=== PATIENT | female | born 1955 | race Caucasian/White ===

== ENCOUNTER → 2017-07-28 | Outpatient (CLI) | payer BC ==
--- NOTE | 2017-07-28 11:06 | RAD ---
DATE: 07/28/2017 EXAM: MAMMO SHAY SCREENING BILATERAL HISTORY: Routine screening COMPARISON: 07/14/2016 This study was interpreted with the benefit of Computerized Aided Detection (CAD). FINDINGS: Breast Density: SCATTERED The breast parenchyma shows scattered fibroglandular densities. Breast parenchyma level B. There are no dominant suspicious masses, suspicious microcalcifications or evidence of architectural distortion. Benign-appearing nodules or intramammary lymph nodes identified in the bilateral breasts similar to prior exam. IMPRESSION: Benign findings BI-RADS CATEGORY: 2 BENIGN FINDING RECOMMENDED FOLLOW-UP: 12M 12 MONTH FOLLOW-UP PQRS compliance statement: Patient information was entered into a reminder system with a target due date 07/28/2018 for the next mammogram. Mammography is a sensitive method for finding small breast cancers, but it does not detect them all and is not a substitute for careful clinical examination. A negative mammogram does not negate a clinically suspicious finding and should not result in delay in biopsying a clinically suspicious abnormality. "Our facility is accredited by the [employer] Mammography [employer]."
== END | disposition home or self-care (01) ==
LOC: MAMMO 08:31
PROVIDERS: ATTEND Specialist
DX: Z12.31 Encounter for screening mammogram for malignant neoplasm of breast (principal)
CPT/HCPCS: 77063; G0202; 77067

== ENCOUNTER → 2018-08-01 | Outpatient (CLI) | payer BC ==
--- NOTE | 2018-08-01 15:06 | RAD ---
DATE: August 01, 2018 EXAM: MAMMO SHAY SCREENING BILATERAL HISTORY: Screening study. COMPARISON: 2015 and 2017. This study was interpreted with the benefit of Computerized Aided Detection (CAD). 2-D digital mammographic views of both breasts were performed in the CC and MLO projections. 3-D digital tomosynthesis images of both breasts were performed in the CC and MLO projections and reviewed on a computer workstation. FINDINGS: Breast Density: SCATTERED The breast parenchyma shows scattered fibroglandular densities. Breast parenchyma level B.. There are no new dominant suspicious masses, suspicious microcalcifications or evidence of architectural distortion. Bilateral breast nodularity is stable. IMPRESSION: No mammographic indicators for malignancy. BI-RADS CATEGORY: 2 BENIGN FINDING RECOMMENDED FOLLOW-UP: 12M 12 MONTH FOLLOW-UP PQRS compliance statement: Patient information was entered into a reminder system with a target due date August 02, 2019 for the next mammogram. Mammography is a sensitive method for finding small breast cancers, but it does not detect them all and is not a substitute for careful clinical examination. A negative mammogram does not negate a clinically suspicious finding and should not result in delay in biopsying a clinically suspicious abnormality. "Our facility is accredited by the [employer] Mammography Program." The patient's breast density may affect the ability of mammography to detect breast cancer. There are 4 categories of breast density, A, B, C and D. Breast density A means that most of the breast tissue is replaced with adipose tissue and therefore is not dense. Breast density B means that the breast tissue is mildly dense and scattered. Breast density C means that the breast tissue is heterogeneously dense. Breast density D means that the breast tissue is very dense. Breast densities especially C and D may decrease the sensitivity of mammography to detect breast cancer. Therefore, the patient may benefit from 3-D breast mammography (3D breast tomography) as a part of their screening mammogram. Insurance may or may not pay for this additional imaging. The patient's breast density based on today's mammogram is category B.
== END | disposition home or self-care (01) ==
LOC: MAMMO 07:47
PROVIDERS: ATTEND Specialist
DX: Z12.31 Encounter for screening mammogram for malignant neoplasm of breast (principal)
CPT/HCPCS: 77063; 77067

== ENCOUNTER → 2019-08-02 | Outpatient (CLI) | payer BC ==
--- NOTE | 2019-08-04 11:10 | RAD ---
FOOT LEFT 2V History: Pain. Technique: 2 views left foot. Comparison: July 25, 2008 Findings: Postoperative changes first metatarsal. Normal alignment. No fracture. Small plantar calcaneal spur. Impression: 1. No acute osseous abnormality. 2. Postoperative changes first metatarsal shaft. Electronically signed by: Blaze Hernandez DO (08/04/2019 11:07 AM) [id number]
== END | disposition home or self-care (01) ==
LOC: DXRAD 15:46
PROVIDERS: ATTEND Specialist
DX: M77.32 Calcaneal spur, left foot (principal); Z98.890 Other specified postprocedural states
CPT/HCPCS: 73620

== ENCOUNTER → 2019-08-04 | Outpatient (CLI) | payer BC ==
--- NOTE | 2019-08-07 13:15 | RAD ---
DATE: August 04, 2019 EXAM: MAMMO SHAY SCREENING BILATERAL HISTORY: Screening study. COMPARISON: 2016 and 2018 This study was interpreted with the benefit of Computerized Aided Detection (CAD). FINDINGS: Breast Density: SCATTERED The breast parenchyma shows scattered fibroglandular densities. Breast parenchyma level B.. There are no dominant suspicious masses, suspicious microcalcifications or evidence of architectural distortion. Multiple bilateral breast nodules are again evident and have not changed significantly. IMPRESSION: No mammographic indicators for malignancy. BI-RADS CATEGORY: 2 BENIGN FINDING RECOMMENDED FOLLOW-UP: 12M 12 MONTH FOLLOW-UP PQRS compliance statement: Patient information was entered into a reminder system with a target due date August 05, 2020 for the next mammogram. Mammography is a sensitive method for finding small breast cancers, but it does not detect them all and is not a substitute for careful clinical examination. A negative mammogram does not negate a clinically suspicious finding and should not result in delay in biopsying a clinically suspicious abnormality. "Our facility is accredited by the [employer] Mammography Program." The patient's breast density may affect the ability of mammography to detect breast cancer. There are 4 categories of breast density, A, B, C and D. Breast density A means that most of the breast tissue is replaced with adipose tissue and therefore is not dense. Breast density B means that the breast tissue is mildly dense and scattered. Breast density C means that the breast tissue is heterogeneously dense. Breast density D means that the breast tissue is very dense. Breast densities especially C and D may decrease the sensitivity of mammography to detect breast cancer. Therefore, the patient may benefit from 3-D breast mammography (3D breast tomography) as a part of their screening mammogram. Insurance may or may not pay for this additional imaging. The patient's breast density based on today's mammogram is category B.
== END | disposition home or self-care (01) ==
LOC: MAMMO 09:45
PROVIDERS: ATTEND Specialist
DX: Z12.31 Encounter for screening mammogram for malignant neoplasm of breast (principal); N62 Hypertrophy of breast
CPT/HCPCS: 77063; 77067

== ENCOUNTER 2020-07-20 04:42 | Inpatient (IN) | payer BC ==
[~2020-07-20] VITALS: Ht 165.1 cm; Wt 85.4 kg
[2020-07-20] MEDS ORDERED: simvastatin (04:57)
[2020-07-20] MEDS ORDERED: ibuprofen (04:57)
[2020-07-20] MEDS ORDERED: tramadol (04:57)
[2020-07-20] MEDS ORDERED: IV NORMAL SALINE 500ML 500 ML IV ONE (05:00)
[2020-07-20] MEDS ORDERED: ONDANSETRON PF 4 MG/2 ML VIAL. IVP ONE (05:00)
--- NOTE | 2020-07-20 05:04 | PHYS DOC ---
General Adult HPI: HPI: Patient is a 64-year-old female coming in for severe diffuse abdominal pain. The pain started 3 days ago as a sharp pain in her right abdomen. Travel to [place] to spend Thanksgiving with family, patient states she had stopped and had a drive-through burger prior to the pain. who is with her did not have any before the restaurant and has no symptoms. Patient states that the pain is gotten more more diffuse. Patient states she also has not had a bowel movement since that same day 3 days ago, has had dry heaving but no vomiting. Pain is worse with food and movement. No changes with urination, no fevers. No history of any abdominal surgeries. Patient denies history of constipation says she normally has regular bowel movements. Review of Systems: Review of Systems: Constitutional: Denies fever or chills Eyes: Denies change in visual acuity HENT: Denies nasal congestion or sore throat Respiratory: Denies cough or shortness of breath Cardiovascular: Denies chest pain or edema GI: Generalized abdominal pain, nausea without vomiting. Constipation, denies abdominal distention or bloating : Denies dysuria Musculoskeletal: Denies back pain or joint pain Integument: Denies rash Neurologic: Denies headache, focal weakness or sensory changes Endocrine: Denies polyuria or polydipsia Lymphatic: Denies swollen glands Psychiatric: Denies depression or anxiety Physical Exam: PE: Constitutional: Well developed, well nourished, acute distress, non-toxic appearance. [] HENT: Normocephalic, atraumatic, bilateral external ears normal, oropharynx moist, no oral exudates, nose normal. [] Eyes: PERRLA, EOMI, conjunctiva normal, no discharge. [] Neck: Normal range of motion, no tenderness, supple, no stridor. [] Cardiovascular:Heart rate regular rhythm, no murmur [] Lungs & Thorax: Bilateral breath sounds clear to auscultation [] Abdomen: Nondistended, generalized abdominal pain with guarding and positive rebound. No identifiable point tenderness Skin: Warm, dry, no erythema, no rash. [] No jaundice Back: No tenderness, no CVA tenderness. [] Extremities: No tenderness, no cyanosis, no clubbing, ROM intact, no edema. [] Neurologic: Alert and oriented X 3, normal motor function, normal sensory function, no focal deficits noted. [] Psychologic: Affect normal, judgement normal, mood normal. [] EKG: EKG: [] Radiology/Procedures: Radiology/Procedures: [] Heart Score: Risk Factors: Risk Factors: DM, Current or recent (<one month) smoker, HTN, HLP, family history of CAD, obesity. Risk Scores: Score 0 - 3: 2.5% MACE over next 6 weeks - Discharge Home Score 4 - 6: 20.3% MACE over next 6 weeks - Admit for Clinical Observation Score 7 - 10: 72.7% MACE over next 6 weeks - Early Invasive Strategies Course & Med Decision Making: Course & Med Decision Making CT done and shows free fluid in the abdomen. Given Zosyn due to stranding on CT and white blood cell count of 25. Pending CT read and transfer for surgical consult. Care transition to Dr. Davila [] Neal Disclaimer: Neal Disclaimer: This electronic medical record was generated, in whole or in part, using a voice recognition dictation system. Departure Departure: Referrals: LUZ MARINA VOGT MD (PCP) MONICA NASCIMENTO MD Jul 20, 2020 05:03
[2020-07-20] MEDS ORDERED: IOHEXOL 300 MG/ML 75 ML VIAL. IV ONE (05:15)
[2020-07-20] MEDS ORDERED: CONTRAST GIVEN. MC PRN (05:15)
[2020-07-20] MEDS ORDERED: HYDROmorphone PF 1 MG/ML DISP.SYRIN ONE (05:22)
[2020-07-20] MEDS ORDERED: HYDROmorphone PF 1 MG/ML DISP.SYRIN IVP ONE (05:30)
[2020-07-20 05:31] LABS: CREATININE 1.1 mg/dL (0.6-1.0); POTASSIUM 3.5 mmol/L (3.5-5.1)
[2020-07-20 05:38] LABS: BASO # 0.1 x10^3/uL (0.0-0.2); BASO % 1 % (0-3); EOS # 0.4 x10^3/uL (0.0-0.7); EOS % 2 % (0-3); HEMATOCRIT 47.8 % (36.0-47.0); LYMPH # 3.1 x10^3/uL (1.0-4.8); LYMPH % 12 % (24-48); MEAN CORPUSCULAR HEMOGLOBIN 29 pg (25-35); MEAN CORPUSCULAR HGB CONC 34 g/dL (31-37); MEAN CORPUSCULAR VOLUME 88 fL (79-100); MONO # 1.7 x10^3/uL (0.0-1.1); MONO % 7 % (0-9); NEUT # 20.1 x10^3uL (1.8-7.7); NEUT % 79 % (31-73); PLATELET COUNT 226 x10^3/uL (140-400); RED BLOOD COUNT 5.46 x10^6/uL (3.50-5.40); WHITE BLOOD COUNT 25.4 x10^3/uL (4.0-11.0)
[2020-07-20 05:46] LABS: ALBUMIN 2.8 g/dL (3.4-5.0); ALBUMIN/GLOBULIN RATIO 0.6 (1.0-1.7); TOTAL BILIRUBIN 0.8 mg/dL (0.2-1.0); TOTAL PROTEIN 7.4 g/dL (6.4-8.2)
[2020-07-20] MEDS ORDERED: IV RINGERS SOLUTION,LACTATED 1,000 ML IV ONE (06:00)
[2020-07-20] MEDS ORDERED: PIPERACILLIN/TAZOBACTAM 3.375 GM in IV NORMAL SALINE 50ML 50 ML IV ONE (06:00)
[2020-07-20 06:06] LABS: % ATYL 7 % (0-0); % BANDS 2 % (0-9); % EOS 7 % (0-5); % LYMPHS 4 % (24-48); % MONOS 9 % (0-10); % SEGS 71 % (35-66)
[2020-07-20 06:07] LABS: PLT ESTIMATE ADEQUATE (ADEQUATE)
[2020-07-20] MEDS ORDERED: IV NORMAL SALINE 50ML 50 ML ONE (06:08)
[2020-07-20] MEDS ORDERED: PIPERACILLIN/TAZOBACTAM 3.375 GM VIAL IV ONE (06:08)
--- NOTE | 2020-07-20 06:23 | RAD ---
EXAMINATION: CT ABD PELV W/ IV CONTRST ONLY (CT ABDOMEN/PELVIS WITH IV CONTRAST) CLINICAL HISTORY: Generalized abdominal pain TECHNIQUE: CT of the abdomen and pelvis was performed using standard technique, scanning from just above the dome of the diaphragm to the symphysis pubis following administration of intravenous contrast. CT Dose Reduction Employed: One or more of the following individualized dose reduction techniques were utilized for this examination: 1. Automated exposure control 2. Adjustment of the mA and/or kV according to patient size 3. Use of iterative reconstruction technique. COMPARISON: None FINDINGS: Partially visualized small right pleural effusion with overlying atelectasis. Trace left pleural effusion with overlying atelectasis. Partially visualized small focal calcification along the pericardium overlying the right atrium. Moderate peripancreatic edema at the level of the pancreatic head, uncinate process, and proximal body. No organized peripancreatic fluid collection or focal pancreatic hypoenhancement. 8mm ovoid lesion in the pancreatic body with macroscopic fat. Liver, gallbladder, spleen, endotracheal glands unremarkable. Subcentimeter hypoenhancing lesions in the bilateral kidneys, too small adequately characterize but likely benign. Mildly filled urinary bladder. Uterus and ovaries unremarkable. Mild simple fluid within the pelvis, likely reactive. No bowel dilation or definite wall thickening. Minimal sigmoid diverticulosis without evidence of diverticulitis. Normal appendix. Minimal arterial atherosclerotic calcification without aneurysm. No significant lymphadenopathy. L4-5 and L5-S1 facet arthropathy. IMPRESSION: Findings compatible with acute uncomplicated pancreatitis, correlate with serum lipase level. 8 mm lipomatous lesion in the pancreatic body, suggestive of a lipoma. Partially visualized small right pleural effusion and trace left pleural effusion. Electronically signed by: Oh Roman DO (07/20/2020 6:20 AM) [facility]
[2020-07-20 08:04] VITALS: BP 111/75
[2020-07-20] MEDS: HYDROmorphone PF 1 MG/ML DISP.SYRIN IV PRN ×5 (09:10→23:51)
--- NOTE | 2020-07-20 09:38 | HP ---
ADMIT DATE: 07/20/2020 ATTENDING PHYSICIAN: Dr. Solomon. CHIEF COMPLAINT: Abdominal pain and nausea. HISTORY OF PRESENT ILLNESS: The patient is a 64-year-old female who is otherwise active and fairly healthy. She has a 3-day history of increasing abdominal pain and nausea following a recent car trip to [place] to see her daughter. She did not feel well. She came back. The nausea and pain persisted. In the ED, she had a CT of the abdomen, which showed moderate inflammation of the pancreas. This is read out as an uncomplicated pancreatitis involving peripancreatic edema at the level of the pancreatic head to uncinate process and proximal body. No collection of fluid. No pseudocyst. A small left pleural effusion is identified. There is no obstruction. There is some lumbar facet arthropathy. She had an 8 mm lipomatous lesion in the pancreatic body, suggesting a lipoma. No other pathology identified. She was admitted then with acute pancreatitis, most likely idiopathic in nature. She denies any alcohol use. She is very straightforward. There is no evidence of gallstones at this time. Certainly, she could have had a gallstone which passed and has not seen at this time. She is admitted then for further treatment and evaluation and n.p.o. status. PAST MEDICAL HISTORY: Significant for mild lumbar back pain and hyperlipidemia. CURRENT MEDICATIONS: Includes Crestor and occasional Lunesta at night to help her sleep and Ultram for back pain. There is no previous abdominal surgery. No COVID exposure. No fevers. FAMILY HISTORY: Her mom unfortunately at age 40 of complications of lung cancer and had been a heavy smoker. Father at age 54 of the ravages of alcohol use. She is , retired. 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 She has 3 children, ages 40, 38 and 36, they are all grown. She has 5 grandchildren. ALLERGIES: She has no recorded drug allergies. She herself is a nonsmoker, nondrinker. REVIEW OF SYSTEMS: Significant for the GI symptoms. No fevers, COVID exposure, nausea without vomiting, no hematemesis. All other systems were reviewed and determined to be negative. PHYSICAL EXAMINATION: GENERAL: When I saw her, this is a pleasant, middle-aged female. INITIAL VITAL SIGNS: In the ED showed a blood pressure of 138/89, pulse is 94 and regular. She was afebrile, oxygen saturation 97% on 2 liters nasal cannula. HEENT: Head is without trauma. Pupils are reactive. Sclerae nonicteric. Oropharynx is clear. NECK: Supple. No guarding or rebound tenderness. LUNGS: Otherwise clear. CARDIOVASCULAR: Showed regular heart tones. No gallops. Peripheral pulses are palpable and full. ABDOMEN: Diffuse tenderness on palpation. There is some guarding, but no rebound tenderness. Bowel sounds are hypoactive. EXTREMITIES: Showed no cyanosis or edema. NEUROLOGIC: Focally intact. Speech is fluent. There are no focal deficits. SKIN: Otherwise warm and dry. PERTINENT LABORATORY AND X-RAY STUDIES: CT of the abdomen as noted. The white count was elevated at 25,400, hemoglobin 16.0 g/dL in a hemoconcentrated state. Sodium 134 mEq, potassium 3.5, creatinine is 1.1 mg/dL, nonfasting blood sugar 115. Transaminases and bilirubin were normal. Lactate level came down to 0.9. ASSESSMENT: 1. A 64-year-old female with acute pancreatitis, etiology is idiopathic. She does not drink any alcohol. There is no evidence of stones. A triglyceride level is pending. 2. Associated nausea with vomiting. 3. Localized pain. 4. Hyperlipidemia. PLAN: 1. Admit to the inpatient unit. 2. Strict n.p.o. except for ice chips. 3. IV hydration. 4. Pain control. 5. Nausea control. 6. Follow up CBCs and chemistries. NETTIE SOLOMON MD DR: GLENDA/analy JOB#: [id number] / [id number] [facility] LUZ MARINA VOGT MD
[2020-07-20] MEDS ORDERED: TRAM50TA PO (10:23)
[2020-07-20] MEDS ORDERED: ESZO3TAB28 PO (10:23)
[2020-07-20] MEDS ORDERED: SIMV20TA18 PO (10:23)
[2020-07-20] MEDS ORDERED: ASPI-630 PO (10:26)
[2020-07-20 10:41] LABS: BILIRUBIN,URINE NEG (NEG); CLARITY,URINE HAZY; COLOR,URINE AMBER; GLUCOSE,URINE NEG (NEG)
[2020-07-20 10:42] LABS: BACTERIA,URINE FEW /HPF (0-FEW); GRANULAR CASTS,URINE OCC /HPF; HYALINE CASTS, URINE OCC /HPF; NITRITE,URINE NEG (NEG); SQUAMOUS EPITHELIAL CELL,UR MOD /LPF; UROBILINOGEN,URINE 0.2 mg/dL (0.2 mg/dL)
[2020-07-20 12:26] VITALS: BP 91/60
[2020-07-20 15:15] VITALS: BP 106/73
[2020-07-20 19:28] VITALS: BP 100/67
[2020-07-20] MEDS: IV NORMAL SALINE 1,000ML 1,000 ML IV SCH (20:24)
[2020-07-21] MEDS: HYDROmorphone PF 1 MG/ML DISP.SYRIN IV PRN ×7 (04:00→22:45)
[2020-07-21 05:15] VITALS: BP 101/52
[2020-07-21 06:40] LABS: BASO # 0.1 x10^3/uL (0.0-0.2); BASO % 1 % (0-3); EOS # 0.3 x10^3/uL (0.0-0.7); EOS % 2 % (0-3); HEMATOCRIT 38.4 % (36.0-47.0); HEMOGLOBIN 12.6 g/dL (12.0-15.5); LYMPH # 1.4 x10^3/uL (1.0-4.8); LYMPH % 8 % (24-48); MEAN CORPUSCULAR HEMOGLOBIN 29 pg (25-35); MEAN CORPUSCULAR HGB CONC 33 g/dL (31-37); MEAN CORPUSCULAR VOLUME 88 fL (79-100); MONO # 1.3 x10^3/uL (0.0-1.1); MONO % 8 % (0-9); NEUT # 13.6 x10^3uL (1.8-7.7); NEUT % 82 % (31-73); PLATELET COUNT 169 x10^3/uL (140-400); RED BLOOD COUNT 4.37 x10^6/uL (3.50-5.40); RED CELL DISTRIBUTION WIDTH 13.8 % (11.5-14.5); WHITE BLOOD COUNT 16.7 x10^3/uL (4.0-11.0)
[2020-07-21] MEDS: IV NORMAL SALINE 1,000ML 1,000 ML IV SCH ×2 (07:25→17:30)
[2020-07-21 10:10] VITALS: BP 117/59
[2020-07-21] MEDS: CYCLOBENZAPRINE 10 MG TABLET. PO SCH ×2 (10:27→21:19)
[2020-07-21] MEDS ORDERED: PANTOPRAZOLE IV 40 MG VIAL. IVP ONE (14:00)
[2020-07-21 14:52] VITALS: BP 130/83
--- NOTE | 2020-07-21 17:19 | EKG ---
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
--- NOTE | 2020-07-21 18:11 | PN ---
DATE: 07/21/2020 ATTENDING PHYSICIAN: Dr. Solomon. SUBJECTIVE: Not feeling well. Nausea persists. Abdominal pain is lessened; however, she has a significant headache. It is more musculoskeletal in nature. OBJECTIVE FINDINGS: VITAL SIGNS: Blood pressure today is 101/52, pulse 97 and regular, temperature 98.6 degrees Fahrenheit, oxygen saturation 93% on room air. HEENT: Head is without trauma. Pupils are reactive. Sclerae nonicteric. Oropharynx is clear. NECK: Supple, no bruits. There are numerous trigger points in the posterior cervical area; muscles are spasming. LUNGS: Clear. CARDIOVASCULAR: Showed regular heart tones. No gallops. ABDOMEN: Soft. There is no guarding or rebound tenderness. Bowel sounds are hypoactive. EXTREMITIES: Showed no cyanosis or edema. NEUROLOGIC: Focally intact. Speech is fluent. Affect is somewhat flat. LABORATORY DATA: Repeat CBC showed hemoglobin 12.6 g/dL, yesterday it was higher due to a hemoconcentrated state; white count has come down to 16,700. ASSESSMENT: 1. A 64-year-old female with idiopathic pancreatitis. Once again, the etiology is unclear. She absolutely denies alcohol use. There is no evidence of stones. 2. Associated nausea with vomiting. 3. Musculoskeletal tension headaches. 4. Hyperlipidemia. PLAN: 1. We will continue to keep her n.p.o. except for some ice chips. 2. IV hydration. 3. Pain and nausea control. 4. Add Flexeril for muscle spasm. 5. Follow up CBC and chemistry. NETTIE SOLOMON MD DR: GLENDA/analy JOB#: [id number] / [id number]
[2020-07-21 19:10] VITALS: BP 142/80
[2020-07-21 23:03] VITALS: BP 133/83
[2020-07-21] MEDS: LABETALOL 20 MG/4 ML DISP.SYRIN. IVP PRN ×2 (23:14→23:58)
[2020-07-21 23:38] VITALS: BP 114/72
[2020-07-22 00:23] VITALS: BP 106/69
[2020-07-22] MEDS: HYDROmorphone PF 1 MG/ML DISP.SYRIN IV PRN ×6 (02:30→20:43)
[2020-07-22 05:46] VITALS: BP 102/58
[2020-07-22 06:14] LABS: CALCIUM 8.3 mg/dL (8.5-10.1); CREATININE 0.7 mg/dL (0.6-1.0); GFR 84.2; POTASSIUM 3.4 mmol/L (3.5-5.1)
[2020-07-22 06:18] LABS: BASO # 0.1 x10^3/uL (0.0-0.2); BASO % 0 % (0-3); EOS # 0.2 x10^3/uL (0.0-0.7); EOS % 2 % (0-3); HEMATOCRIT 35.9 % (36.0-47.0); HEMOGLOBIN 11.7 g/dL (12.0-15.5); LYMPH # 1.5 x10^3/uL (1.0-4.8); LYMPH % 10 % (24-48); MEAN CORPUSCULAR HEMOGLOBIN 29 pg (25-35); MEAN CORPUSCULAR HGB CONC 33 g/dL (31-37); MEAN CORPUSCULAR VOLUME 88 fL (79-100); MONO # 1.3 x10^3/uL (0.0-1.1); MONO % 8 % (0-9); NEUT # 12.6 x10^3uL (1.8-7.7); NEUT % 80 % (31-73); PLATELET COUNT 187 x10^3/uL (140-400); RED BLOOD COUNT 4.08 x10^6/uL (3.50-5.40); RED CELL DISTRIBUTION WIDTH 13.8 % (11.5-14.5); WHITE BLOOD COUNT 15.7 x10^3/uL (4.0-11.0)
--- NOTE | 2020-07-22 08:20 | PDOC2 ---
CARDIAC CONSULT DATE OF CONSULT DOS: DATE: 07/22/20 TIME: 08:08 REASON FOR CONSULT Reason for Consult SVT REFERRING PHYSICIAN Referring Physician Dr. Ayers SOURCE Source: Chart review, Patient HPI History of Present Illness This is a 64 yo female who presented with abdominal pain. Pain began 3 days prior to arrival. Traveled to [place] for Thanksgiving with family. Began having pain shortly after she arrived. Stayed for a day and retuned home due to pain. Pain progressively worsened. Has had nausea, but no vomiting. Decided to come to the ED for further evaluation and treatment. CT abdomen/pelvis with evidence of pancreatitis, although lipase is WNL. Went into AFIB with RVR overnight, which prompted this consult. She denies any palpitations, dizziness, diaphoresis, SOA. Does c/o WOODS. PAST MEDICAL HISTORY Cardiovascular: hyperipidemia Pulmonary: No pertinent hx GI: No pertinent hx Musculoskeletal: Osteoarthritis Endocrine: No pertinent hx PAST SURGICAL HISTORY Past Surgical History: No pertinent history FAMILY HISTORY Family History: Other (no pertinent histroy ) SOCIAL HISTORY Smoke: No ALCOHOL: none Drugs: None Lives: with Family CURRENT MEDICATIONS Current Medications Current Medications Ondansetron HCl (Zofran) 4 mg 1X ONCE IVP Last administered on 07/20/20at 05:18; Start 07/20/20 at 05:00; Stop 07/20/20 at 05:11; Status DC Sodium Chloride 500 ml @ 0 mls/hr 1X ONCE IV Last administered on 07/20/20at 05:17; Start 07/20/20 at 05:00; Stop 07/20/20 at 05:11; Status DC Fentanyl Citrate (Fentanyl 2ml Vial) 75 mcg 1X ONCE IVP Last administered on 07/20/20at 05:18; Start 07/20/20 at 05:00; Stop 07/20/20 at 05:11; Status DC Iohexol (Omnipaque 300 Mg/ml) 75 ml 1X ONCE IV Last administered on 07/20/20at 05:32; Start 07/20/20 at 05:15; Stop 07/20/20 at 05:16; Status DC Info (Do NOT chart on this entry -- for MONITORING) 1 each PRN DAILY PRN MC SEE COMMENTS; Start 07/20/20 at 05:15; Stop 07/22/20 at 05:14; Status DC Hydromorphone HCl (Dilaudid) 1 mg 1X ONCE IVP Last administered on 07/20/20at 05:28; Start 07/20/20 at 05:30; Stop 07/20/20 at 05:31; Status DC Hydromorphone HCl (Dilaudid) 1 mg STK-MED ONCE .ROUTE ; Start 07/20/20 at 05:22; Stop 07/20/20 at 05:22; Status DC Piperacillin Sod/ Tazobactam Sod 3.375 gm/Sodium Chloride 50 ml @ 100 mls/hr 1X ONCE IV Last administered on 07/20/20at 06:12; Start 07/20/20 at 06:00; Stop 07/20/20 at 06:29; Status DC Lactated Ringer's 1,000 ml @ 75 mls/hr 1X ONCE IV Last administered on 07/20/20at 06:12; Start 07/20/20 at 06:00; Stop 07/20/20 at 19:19; Status DC Sodium Chloride 50 ml @ As Directed STK-MED ONCE .ROUTE ; Start 07/20/20 at 06:08; Stop 07/20/20 at 06:08; Status DC Piperacillin Sod/ Tazobactam Sod (Zosyn) 3.375 gm STK-MED ONCE IV ; Start 07/20/20 at 06:08; Stop 07/20/20 at 06:08; Status DC Sodium Chloride 1,000 ml @ 100 mls/hr Q10H IV Last administered on 07/21/20at 17:30; Start 07/20/20 at 07:15; Stop 07/21/20 at 07:14; Status DC Hydromorphone HCl (Dilaudid) 1 mg PRN Q3HRS PRN IV PAIN Last administered on 07/21/20at 07:25; Start 07/20/20 at 07:15; Stop 07/21/20 at 09:24; Status DC Hydromorphone HCl (Dilaudid) 1 mg PRN Q2HR PRN IV PAIN Last administered on 07/22/20at 07:35; Start 07/21/20 at 09:15 Cyclobenzaprine HCl (Flexeril) 10 mg BID PO Last administered on 07/21/20at 21:19; Start 07/21/20 at 10:30 Pantoprazole Sodium (Protonix Vial) 40 mg DAILYAC IVP ; Start 07/22/20 at 07:30 Pantoprazole Sodium (Protonix Vial) 40 mg 1X ONCE IVP Last administered on 07/21/20at 14:22; Start 07/21/20 at 14:00; Stop 07/21/20 at 14:02; Status DC Labetalol HCl (Normodyne) 10 mg PRN Q1HR PRN IVP HYPERTENSION Last administered on 07/21/20at 23:58; Start 07/21/20 at 23:15 Active Scripts Active Reported Aspirin 81 Mg Tab.chew 81 Mg PO DAILY Lunesta (Eszopiclone) 3 Mg Tablet 1 Tab PO PRN QHS PRN MDD 1 Tablet(s) 30 Days Simvastatin 20 Mg Tablet 1 Tab PO QHS Tramadol Hcl (Tramadol HCl) 50 Mg Tablet 50 Mg PO PRN Q6HRS PRN ALLERGIES Allergies: Coded Allergies: No Known Drug Allergies (Unverified , 07/20/20) ROS Review of Systems 14 point ROS conducted with pertinent positives noted above in hPI PHYSICAL EXAM General: Alert, Oriented X3, Cooperative, No acute distress HEENT: Atraumatic, Mucous membr. moist/pink Lungs: Clear to auscultation Heart: Regular rate, Normal S1 Abdomen: Other (mild tenderness ) Extremities: No edema, Normal pulses Skin: No breakdown Neuro: Normal speech, Sensation intact Psych/Mental Status: Mental status NL, Mood NL MUSCULOSKELETAL: Osteoarthritic changes both hands VITALS Vital Signs Vital Signs Date Time Temp Pulse Resp B/P (MAP) Pulse Ox O2 Delivery O2 Flow Rate FiO2 07/22/20 07:35 18 Room Air 07/22/20 05:46 98.3 85 102/58 (73) 93 2.0 LABS LABS Laboratory Tests Test 07/20/20 08:35 07/20/20 09:30 07/21/20 06:15 07/22/20 05:52 Lactic Acid Level 0.9 mmol/L (0.4-2.0) Urine Collection Type Unknown Urine Color Marisa Urine Clarity Hazy Urine pH 5.5 Urine Specific [place] 1.010 Urine Protein Trace (NEG-TRACE) Urine Glucose (UA) Neg mg/dL (NEG) Urine Ketones (Stick) 15 mg/dL (NEG) Urine Blood Small (NEG) Urine Nitrite Neg (NEG) Urine Bilirubin Neg (NEG) Urine Urobilinogen Dipstick 0.2 mg/dL (0.2 mg/dL) Urine Leukocyte Esterase Trace (NEG) Urine RBC 3-5 /HPF (0-2) Urine WBC 11-20 /HPF (0-4) Urine Squamous Epithelial Cells Mod /LPF Urine Bacteria Few /HPF (0-FEW) Urine Hyaline Casts Occ /HPF Urine Granular Casts Occ /HPF Urine Mucus Slight /LPF White Blood Count 16.7 x10^3/uL (4.0-11.0) 15.7 x10^3/uL (4.0-11.0) Red Blood Count 4.37 x10^6/uL (3.50-5.40) 4.08 x10^6/uL (3.50-5.40) Hemoglobin 12.6 g/dL (12.0-15.5) 11.7 g/dL (12.0-15.5) Hematocrit 38.4 % (36.0-47.0) 35.9 % (36.0-47.0) Mean Corpuscular Volume 88 fL (79-100) 88 fL (79-100) Mean Corpuscular Hemoglobin 29 pg (25-35) 29 pg (25-35) Mean Corpuscular Hemoglobin Concent 33 g/dL (31-37) 33 g/dL (31-37) Red Cell Distribution Width 13.8 % (11.5-14.5) 13.8 % (11.5-14.5) Platelet Count 169 x10^3/uL (140-400) 187 x10^3/uL (140-400) Neutrophils (%) (Auto) 82 % (31-73) 80 % (31-73) Lymphocytes (%) (Auto) 8 % (24-48) 10 % (24-48) Monocytes (%) (Auto) 8 % (0-9) 8 % (0-9) Eosinophils (%) (Auto) 2 % (0-3) 2 % (0-3) Basophils (%) (Auto) 1 % (0-3) 0 % (0-3) Neutrophils # (Auto) 13.6 x10^3uL (1.8-7.7) 12.6 x10^3uL (1.8-7.7) Lymphocytes # (Auto) 1.4 x10^3/uL (1.0-4.8) 1.5 x10^3/uL (1.0-4.8) Monocytes # (Auto) 1.3 x10^3/uL (0.0-1.1) 1.3 x10^3/uL (0.0-1.1) Eosinophils # (Auto) 0.3 x10^3/uL (0.0-0.7) 0.2 x10^3/uL (0.0-0.7) Basophils # (Auto) 0.1 x10^3/uL (0.0-0.2) 0.1 x10^3/uL (0.0-0.2) Sodium Level 140 mmol/L (136-145) Potassium Level 3.4 mmol/L (3.5-5.1) Chloride Level 105 mmol/L (98-107) Carbon Dioxide Level 28 mmol/L (21-32) Anion Gap 7 (6-14) Blood Urea Nitrogen 9 mg/dL (7-20) Creatinine 0.7 mg/dL (0.6-1.0) Estimated GFR (Cockcroft-Gault) 84.2 Glucose Level 85 mg/dL (70-99) Calcium Level 8.3 mg/dL (8.5-10.1) ASSESSMENT/PLAN Assessment/Plan 1. Abdominal pain; CT abd/pelvis with evidence of pancreatitis. Lipase WNL 2. Leukocytosis, lactic acidosis 3. Hypokalemia 3. Arrhythmia; review of tele shows AFIB with RVR. Treated with Labetalol overnight. Converted back to SR and is maintaining this am Recommendations Replace K Mg, TSH level Add ASA when able to take oral Start metoprolol for rate control; will use metoprolol 5mg IVP q6. Convert to oral when able to take PO Echo ordered Will arrange outpatient event monitor to guide therapy Follow up with Dr. Richardson Supportive care MAGUI RUDOLPH APRN Jul 22, 2020 08:20
[2020-07-22] MEDS: PANTOPRAZOLE IV 40 MG VIAL. IVP SCH (08:21)
[2020-07-22] MEDS: CYCLOBENZAPRINE 10 MG TABLET. PO SCH ×2 (08:21→20:43)
--- NOTE | 2020-07-22 09:20 | PN ---
DATE: 07/22/2020 ATTENDING PHYSICIAN: Dr. Solomon. SUBJECTIVE: Nausea is better. Headache is improved. She had some asymptomatic tachyarrhythmia last night, which appears to be atrial fibrillation. This has been controlled with addition of beta blockade. OBJECTIVE FINDINGS: VITAL SIGNS: Blood pressure this morning is 102/58 mmHg, pulse 85 and regular, oxygen saturation 93%, temperature is 98.3 degrees Fahrenheit. HEENT: Head is without trauma. Pupils are reactive. Sclerae nonicteric. Oropharynx is clear. NECK: Supple, no bruits identified. LUNGS: Otherwise clear. CARDIOVASCULAR: Showed regular heart tones. ABDOMEN: Soft. Minimal guarding, no rebound tenderness. Hypoactive bowel sounds. EXTREMITIES: Show no cyanosis or edema. NEUROLOGIC: Focally intact. Speech is fluent. SKIN: Warm and dry. PERTINENT LABORATORY STUDIES: White count is down from 25,000-15,700 today. Chemistry panel: Potassium 3.4 mEq, sodium 140, creatinine 0.7 mg/dL, triglycerides were 75. ASSESSMENT: 1. This 64-year-old female has idiopathic pancreatitis, acute. 2. Associated nausea and vomiting. 3. Paroxysmal atrial fibrillation, controlled now. 4. Hyperlipidemia. 5. Headaches, improved. PLAN: 1. Rx per Cardiology. 2. I ordered an echocardiogram. 3. Continue n.p.o. 4. Pain and nausea control. 5. Follow up chemistries. NETTIE SOLOMON MD DR: GLENDA/analy JOB#: [id number] / [id number]
[2020-07-22 10:00] VITALS: BP 131/80
[2020-07-22] MEDS: POTASSIUM CHLORIDE 10MEQ 100 ML IV SCH ×2 (10:02→11:27)
[2020-07-22] MEDS: METOPROLOL TARTRATE 5 MG/5 ML VIAL. IV SCH ×2 (12:54→17:52)
[2020-07-22 15:54] VITALS: BP 133/77
[2020-07-22 20:00] VITALS: BP 123/74
[2020-07-22 23:30] VITALS: BP 125/53
[2020-07-23] VITALS (18 sets, daily range): BP systolic 115–158; BP diastolic 48–95
[2020-07-23] MEDS: METOPROLOL TARTRATE 5 MG/5 ML VIAL. IV SCH ×5 (00:16→23:26)
[2020-07-23 06:39] LABS: CALCIUM 8.6 mg/dL (8.5-10.1); CREATININE 0.6 mg/dL (0.6-1.0); GFR 100.6; POTASSIUM 3.3 mmol/L (3.5-5.1)
[2020-07-23] MEDS ORDERED: DIGOXIN IV 500 MCG/2 ML AMPUL. IV ONE ×3 (07:15→16:00)
[2020-07-23] MEDS: METOPROLOL TARTRATE 5 MG/5 ML VIAL. IV PRN ×2 (07:45→15:45)
--- NOTE | 2020-07-23 07:54 | PDOC ---
CARDIO Progress Notes Date & Time Date of Service DATE: 07/23/20 TIME: 07:52 Time of Evaluation 07:52 Subjective Notes mild abdominal tenderness. Mild WOODS and palpitations. No dizziness, chest pain. Vitals Vitals Vital Signs Date Time Temp Pulse Resp B/P (MAP) Pulse Ox O2 Delivery O2 Flow Rate FiO2 07/23/20 07:30 96 137/68 07/23/20 07:26 98.3 20 96 Room Air 07/22/20 20:00 2.0 Weight Weight [ ] Input and Output I.O. Intake and Output 07/23/20 07:00 Intake Total 220 ml Balance 220 ml Intake Oral 220 ml # Voids 6 Laboratory Labs Laboratory Tests Test 07/22/20 05:52 07/23/20 06:08 White Blood Count 15.7 x10^3/uL (4.0-11.0) Red Blood Count 4.08 x10^6/uL (3.50-5.40) Hemoglobin 11.7 g/dL (12.0-15.5) Hematocrit 35.9 % (36.0-47.0) Mean Corpuscular Volume 88 fL (79-100) Mean Corpuscular Hemoglobin 29 pg (25-35) Mean Corpuscular Hemoglobin Concent 33 g/dL (31-37) Red Cell Distribution Width 13.8 % (11.5-14.5) Platelet Count 187 x10^3/uL (140-400) Neutrophils (%) (Auto) 80 % (31-73) Lymphocytes (%) (Auto) 10 % (24-48) Monocytes (%) (Auto) 8 % (0-9) Eosinophils (%) (Auto) 2 % (0-3) Basophils (%) (Auto) 0 % (0-3) Neutrophils # (Auto) 12.6 x10^3uL (1.8-7.7) Lymphocytes # (Auto) 1.5 x10^3/uL (1.0-4.8) Monocytes # (Auto) 1.3 x10^3/uL (0.0-1.1) Eosinophils # (Auto) 0.2 x10^3/uL (0.0-0.7) Basophils # (Auto) 0.1 x10^3/uL (0.0-0.2) Sodium Level 140 mmol/L (136-145) 138 mmol/L (136-145) Potassium Level 3.4 mmol/L (3.5-5.1) 3.3 mmol/L (3.5-5.1) Chloride Level 105 mmol/L (98-107) 102 mmol/L (98-107) Carbon Dioxide Level 28 mmol/L (21-32) 26 mmol/L (21-32) Anion Gap 7 (6-14) 10 (6-14) Blood Urea Nitrogen 9 mg/dL (7-20) 9 mg/dL (7-20) Creatinine 0.7 mg/dL (0.6-1.0) 0.6 mg/dL (0.6-1.0) Estimated GFR (Cockcroft-Gault) 84.2 100.6 Glucose Level 85 mg/dL (70-99) 79 mg/dL (70-99) Calcium Level 8.3 mg/dL (8.5-10.1) 8.6 mg/dL (8.5-10.1) Magnesium Level 2.1 mg/dL (1.8-2.4) Thyroid Stimulating Hormone (TSH) 2.564 uIU/mL (0.358-3.740) Microbiology Micro Microbiology 07/20/20 Urine Culture - Final, Complete Physical Exams HEENT: Neck Supple W Full Motion Chest: Symmetric Lungs: Clear to Auscultation Heart: irregularly irregular (SR/ AFIB) Abdomen: Other (soft, non-distended ) Extremities: No Edema Neurology: alert, oriented, follow commands Assessment Assessment 1. Abdominal pain; CT abd/pelvis with evidence of pancreatitis. Lipase WNL 2. Leukocytosis, lactic acidosis 3. Hypokalemia 3. PAFIB; was in SR, but went back into AFIB with RVR early this am. Treated with IV Digoxin x2 and Metoprolol 10mg IVP and converted back to SR. Mostly SR, but continues to have paroxysms. Recommendations Continue metoprolol for rate control Will start Amiodarone for rhythm maintenance Add Lovenox for stroke prophylaxis while inpatient Remains NPO Echo being conducted to assess LV systolic function Supportive care MAGUI RUDOLPH APRN Jul 23, 2020 07:54
[2020-07-23] MEDS ORDERED: METOPROLOL TARTRATE 5 MG/5 ML VIAL. IV ONE ×2 (08:15)
[2020-07-23] MEDS ORDERED: AMIODARONE 150 MG in IV DEXTROSE 5% 100 ML IVP ONE (08:45)
[2020-07-23] MEDS: PANTOPRAZOLE IV 40 MG VIAL. IVP SCH (09:43)
[2020-07-23] MEDS: ENOXAPARIN ** NOTE DOSE ** SYRINGE SQ SCH ×2 (09:44→20:16)
[2020-07-23] MEDS: CYCLOBENZAPRINE 10 MG TABLET. PO SCH ×2 (09:44→20:15)
[2020-07-23] MEDS: AMIODARONE 450 MG in IV DEXTROSE 5% 250 ML IV PRN ×2 (09:59→15:45)
[2020-07-23] MEDS: HYDROmorphone PF 1 MG/ML DISP.SYRIN IV PRN ×3 (10:53→18:56)
--- NOTE | 2020-07-23 11:05 | CARD ---
MR#: [id number] Date of Study: 07/23/2020 Ordering Physician: NETTIE SOLOMON, Referring Physician: NETTIE SOLOMON, Tech: Maria L Ibrahim APPROVED REPORT EXAM: Two-dimensional and M-mode echocardiogram with Doppler and color Doppler. Other Information Quality : AverageHR: 90bpm Technically limited study due to went into fibrillation INDICATION Chest Pain Pancreatitis RISK FACTORS Hyperlipidemia 2D DIMENSIONS RVDd2.9 (2.9-3.5cm)Left Atrium(2D)3.2 (1.6-4.0cm) IVSd1.0 (0.7-1.1cm)Aortic Root(2D)3.0 (2.0-3.7cm) LVDd4.3 (3.9-5.9cm)LVOT Diameter2.1 (1.8-2.4cm) PWd0.9 (0.7-1.1cm)LVDs2.8 (2.5-4.0cm) FS (%) 33.3 %SV50.4 ml LVEF(%)62.3 (>50%) Aortic Valve AoV Peak Henok.168.0cm/sAoV VTI31.5cm AO Peak GR.8.8mmHgLVOT Peak Henok.142.1cm/s LVOT VTI 28.60cmAO Mean GR.6mmHg JACOB (VMAX)2.53al9RWE (VTI)3.10cm2 Mitral Valve MV E Sxpypbli88.5cm/sMV DECEL [id number] MV A Ascilcys31.3cm/sE/A Ratio0.8 Pulmonary Valve PV Peak Yhvbgtun66.7cm/sPV Peak Grad.3mmHg Tricuspid Valve TR P. Nhvyyril471fq/sRAP [id number] TR Peak Gr.53jgLkIJDG65rpBs LEFT VENTRICLE The left ventricle is normal size. There is borderline to mild concentric left ventricular hypertroph y. The left ventricular systolic function is normal and the ejection fraction is within normal range. The Ejection Fraction is 50-55%. There is normal LV segmental wall motion. Transmitral Doppler flow pattern is Grade I-abnormal relaxation pattern. RIGHT VENTRICLE The right ventricle is normal size. There is normal right ventricular wall thickness. The right ventr icular systolic function is normal. ATRIA The left atrium size is normal. The right atrium size is normal. The interatrial septum is intact wit h no evidence for an atrial septal defect or patent foramen ovale as noted on 2-D or Doppler imaging. AORTIC VALVE The aortic valve is normal in structure and function. Doppler and Color Flow revealed no significant aortic regurgitation. There is no significant aortic valvular stenosis. MITRAL VALVE The mitral valve is normal in structure and function. There is no evidence of mitral valve prolapse. There is no mitral valve stenosis. Doppler and Color-flow revealed trace mitral regurgitation. TRICUSPID VALVE The tricuspid valve is normal in structure and function. Doppler and Color Flow revealed trace tricus pid regurgitation with an estimated PAP of 36 mmHg. There is no tricuspid valve stenosis. PULMONIC VALVE The pulmonic valve is not well visualized. Doppler and Color Flow revealed trace pulmonic valvular re gurgitation. There is no pulmonic valvular stenosis. GREAT VESSELS The aortic root is normal in size. The IVC is normal in size and collapses >50% with inspiration. PERICARDIAL EFFUSION There is no evidence of significant pericardial effusion. Critical Notification Critical Value: No <Conclusion> The left ventricular systolic function is normal and the ejection fraction is within normal range. Th e Ejection Fraction is 50-55%. There is normal LV segmental wall motion. Signed by : Crispin Richardson, Electronically Approved : 07/23/2020 11:05:02
--- NOTE | 2020-07-23 19:07 | PN ---
DATE: 07/23/2020 ATTENDING PHYSICIAN: Dr. Solomon. SUBJECTIVE: Still very weak. She is slightly less nauseated. She is a bit apprehensive about injecting any liquids because of what happened previously several days ago. She still has some intermittent episodes of atrial fibrillation with rapid ventricular rate. She was given more beta blockers and Digitalis. Currently, she is in a sinus rhythm. OBJECTIVE FINDINGS: VITAL SIGNS: Blood pressure is 132/95, pulse range between 70 and 160, temperature 98.3 degrees Fahrenheit, oxygen saturation 94% on room air. HEENT: Head is without trauma. Pupils are reactive. Sclerae nonicteric. Oropharynx is clear. NECK: Supple, no bruits identified. LUNGS: Good breath sounds. CARDIOVASCULAR: Showed regular heart tones at this time. Peripheral pulses are palpable and full. ABDOMEN: Minimal guarding. No rebound tenderness. No masses. Bowel sounds are hypoactive. EXTREMITIES: Showed no cyanosis or edema. NEUROLOGIC: Focally intact. SKIN: Warm and dry. ASSESSMENT: 1. A 64-year-old female with acute pancreatitis, idiopathic, although I learned from her she has been using CBD oil whether or not this is related remains to be seen. 2. Associated nausea and vomiting, improved. 3. Paroxysmal atrial fibrillation, ventricular rate, controlled. 4. Hyperlipidemia. 5. Headaches, resolved. PLAN: 1. Continue n.p.o., but we will try some clear liquids today. 2. Echocardiogram pending. 3. Beta blockade. 4. Rx per Cardiology. 5. Pain and nausea control. NETTIE SOLOMON MD DR: GLENDA/analy JOB#: [id number] / [id number]
[2020-07-23] MEDS: POTASSIUM CHLORIDE 30 MEQ in IV NORMAL SALINE 1,000ML 1,000 ML IV SCH (19:42)
[2020-07-24] VITALS (19 sets, daily range): BP systolic 97–162; BP diastolic 50–91
[2020-07-24] MEDS: HYDROmorphone PF 1 MG/ML DISP.SYRIN IV PRN ×4 (02:55→22:55)
[2020-07-24] MEDS: METOPROLOL TARTRATE 5 MG/5 ML VIAL. IV SCH ×4 (05:31→23:36)
[2020-07-24] MEDS: ENOXAPARIN ** NOTE DOSE ** SYRINGE SQ SCH ×2 (07:47→21:01)
[2020-07-24] MEDS: POTASSIUM CHLORIDE 30 MEQ in IV NORMAL SALINE 1,000ML 1,000 ML IV SCH (07:47)
[2020-07-24] MEDS: PANTOPRAZOLE IV 40 MG VIAL. IVP SCH (07:47)
[2020-07-24] MEDS: CYCLOBENZAPRINE 10 MG TABLET. PO SCH ×2 (07:48→21:01)
--- NOTE | 2020-07-24 08:39 | PDOC ---
MAGUI RUDOLPH COMPLIANCE TESTER 07/24/20 0839: CARDIO Progress Notes Date & Time Date of Service DATE: 07/24/20 TIME: 08:33 Time of Evaluation 08:33 Subjective Notes Abdominal pain improved, but persists. No chest pain, palpitations. Vitals Vitals Vital Signs Date Time Temp Pulse Resp B/P (MAP) Pulse Ox O2 Delivery O2 Flow Rate FiO2 07/24/20 08:27 84 162/82 (108) 96 Room Air 07/24/20 05:50 97.7 14 07/22/20 20:00 2.0 Weight Weight [ ] Input and Output I.O. Intake and Output 07/24/20 07:00 Intake Total 871 ml Balance 871 ml Intake Oral 200 ml IV Total 671 ml # Voids 2 Laboratory Labs Laboratory Tests Test 07/23/20 06:08 Sodium Level 138 mmol/L (136-145) Potassium Level 3.3 mmol/L (3.5-5.1) Chloride Level 102 mmol/L (98-107) Carbon Dioxide Level 26 mmol/L (21-32) Anion Gap 10 (6-14) Blood Urea Nitrogen 9 mg/dL (7-20) Creatinine 0.6 mg/dL (0.6-1.0) Estimated GFR (Cockcroft-Gault) 100.6 Glucose Level 79 mg/dL (70-99) Calcium Level 8.6 mg/dL (8.5-10.1) Microbiology Micro Microbiology 07/20/20 Urine Culture - Final, Complete Physical Exams HEENT: Neck Supple W Full Motion Chest: Symmetric Lungs: Clear to Auscultation Heart: RRR (SR), irregularly irregular Abdomen: Other (soft, non-distended. mild tenderness ) Extremities: No Edema Neurology: alert, oriented, follow commands Assessment Assessment 1. Abdominal pain; CT abd/pelvis with evidence of pancreatitis. 2. Leukocytosis, lactic acidosis 3. Hypokalemia 3. PAFIB; back in SR with Amiodarone. Few brief paroxysms of AFIB, otherwise maintaining SR. Recommendations Repeat BMP, Mg Continue metoprolol for rate control Amiodarone for rhythm maintenance; continue gtt at 0.5mg/hr until able to take oral and can start 200ng daily Anticoagulated with Lovenox Remains NPO Outpatient event monitor to guide therapy and follow up with Dr. Richardson arranged Supportive care SIDDHARTH RICHARDSON MD 07/25/20 0909: CARDIO Progress Notes Plan Plan Pt. seen and examined. Agree with above FITNESS CONSULTANT note. late entry for 07/24/2020 MAGUI RUDOLPH APRN Jul 24, 2020 08:39 SIDDHARTH RICHARDSON MD Jul 25, 2020 09:09
[2020-07-24 08:59] LABS: BASO # 0.1 x10^3/uL (0.0-0.2); BASO % 1 % (0-3); EOS # 0.4 x10^3/uL (0.0-0.7); EOS % 2 % (0-3); HEMATOCRIT 36.7 % (36.0-47.0); LYMPH # 1.9 x10^3/uL (1.0-4.8); LYMPH % 12 % (24-48); MEAN CORPUSCULAR HEMOGLOBIN 29 pg (25-35); MEAN CORPUSCULAR HGB CONC 33 g/dL (31-37); MEAN CORPUSCULAR VOLUME 87 fL (79-100); MONO # 1.2 x10^3/uL (0.0-1.1); MONO % 8 % (0-9); NEUT # 12.7 x10^3uL (1.8-7.7); NEUT % 78 % (31-73); PLATELET COUNT 233 x10^3/uL (140-400); RED CELL DISTRIBUTION WIDTH 13.7 % (11.5-14.5); WHITE BLOOD COUNT 16.3 x10^3/uL (4.0-11.0)
[2020-07-24] MEDS ORDERED: AMIODARONE 450 MG in IV DEXTROSE 5% 250 ML IV ONE (09:00)
[2020-07-24 09:09] LABS: CALCIUM 8.2 mg/dL (8.5-10.1); CREATININE 0.7 mg/dL (0.6-1.0); GFR 84.2; MAGNESIUM 1.9 mg/dL (1.8-2.4); POTASSIUM 3.4 mmol/L (3.5-5.1)
[2020-07-24] MEDS ORDERED: POTASSIUM CL 40MEQ D5-0.45NACL 1,000 ML IV SCH ×3 (13:00→13:15)
[2020-07-24] MEDS: POTASSIUM CL 40MEQ D5-0.45NACL 1,000 ML IV SCH ×2 (14:13→22:54)
--- NOTE | 2020-07-24 21:42 | PN ---
DATE: 07/24/2020 SUBJECTIVE: The patient is resting slightly propped up in bed, in no apparent respiratory distress. She continued to have mild abdominal pain, was n.p.o. She was started on applesauce and she is apparently tolerating it well. She presented with abdominal pain. CT scan showed that she has acute pancreatitis, although her serum lipase was done only once and was actually within normal range. She went into atrial fibrillation with rapid ventricular response for which she is now on amiodarone drip. She continued to have hypokalemia despite replacing her potassium. PHYSICAL EXAMINATION: GENERAL: When I examined her this afternoon, she looked well and was clearly in no apparent respiratory distress. There was no pallor, jaundice, cyanosis or thyromegaly. No jugular venous distension. No lower limb edema. VITAL SIGNS: Her heart rate was 81, blood pressure was 135/85, temperature was 97.7, respiratory rate was 12 and oxygen saturation was 93%. In fact, she was 96% on room air. HEAD, EYES, EARS, NOSE AND THROAT: Showed normocephalic, atraumatic. NECK: Supple. HEART: Normal first and second heart sounds. No gallop, rub or murmur. CHEST: Shows central trachea, equal bilateral chest expansion, air entry, vesicular sounds. I could not appreciate any crepitation or rhonchi. ABDOMEN: Distended, soft, mild tenderness in the epigastric area. No guarding or rigidity. No organomegaly. All hernial orifice intact. Bowel sounds normal. NEUROLOGIC: She was awake, alert, responding appropriately. All cranial nerves intact. She moves extremities without difficulty. Her intake and output is incompletely recorded. LABORATORY DATA: Her lab work this morning showed a white cell count of 16,000, hemoglobin 12, hematocrit 36, MCV 87 and platelet count 233,000 with normal manual differential. Her chemistry showed a serum sodium 136, potassium 3.4, chloride 102, bicarbonate 26, anion gap of 8, BUN 9, creatinine 0.7, estimated GFR was 84 mL per minute. Her glucose was 84 and calcium was 8.2, magnesium was 1.9. Her TSH was normal at 2.564. ASSESSMENT: 1. Abdominal pain due to acute pancreatitis as evidenced by CT scan of the abdomen and pelvis. Her serum lipase was measured only once and was within normal range and the patient did have leukocytosis and lactic acidosis. 2. The patient continued to have hypokalemia and mild hyponatremia. 3. Paroxysmal atrial fibrillation, rate controlled, well anticoagulated on amiodarone as well as Lovenox. PLAN: To continue with amiodarone drip. Continue with metoprolol. Continue with hydromorphone IV for pain and my plan is to change her IV fluid to D5 half normal with 40 mEq of potassium chloride and we will attempt to advance her diet. If she continued to have pain, we will probably have to repeat given that her white cell count has risen up. I will repeat her CT scan of the abdomen to make sure she does not have a pseudocyst or an abscess. RUBI VALLECILLO MD DR: ERNA/analy JOB#: [id number] / [id number]
[2020-07-25] VITALS (9 sets, daily range): BP systolic 103–198; BP diastolic 60–97
[2020-07-25] MEDS: METOPROLOL TARTRATE 5 MG/5 ML VIAL. IV SCH (05:26)
[2020-07-25 06:30] LABS: BASO # 0.2 x10^3/uL (0.0-0.2); BASO % 1 % (0-3); EOS # 0.3 x10^3/uL (0.0-0.7); EOS % 2 % (0-3); HEMATOCRIT 37.7 % (36.0-47.0); HEMOGLOBIN 12.3 g/dL (12.0-15.5); LYMPH # 1.7 x10^3/uL (1.0-4.8); LYMPH % 11 % (24-48); MEAN CORPUSCULAR HEMOGLOBIN 29 pg (25-35); MEAN CORPUSCULAR HGB CONC 33 g/dL (31-37); MEAN CORPUSCULAR VOLUME 87 fL (79-100); MONO # 1.4 x10^3/uL (0.0-1.1); MONO % 9 % (0-9); NEUT # 11.3 x10^3uL (1.8-7.7); NEUT % 76 % (31-73); PLATELET COUNT 235 x10^3/uL (140-400); RED BLOOD COUNT 4.33 x10^6/uL (3.50-5.40); RED CELL DISTRIBUTION WIDTH 13.9 % (11.5-14.5); WHITE BLOOD COUNT 14.9 x10^3/uL (4.0-11.0)
[2020-07-25 06:42] LABS: ALBUMIN 1.8 g/dL (3.4-5.0); ALBUMIN/GLOBULIN RATIO 0.4 (1.0-1.7); CALCIUM 8.3 mg/dL (8.5-10.1); CREATININE 0.6 mg/dL (0.6-1.0); GFR 100.6; POTASSIUM 3.8 mmol/L (3.5-5.1); TOTAL BILIRUBIN 0.4 mg/dL (0.2-1.0); TOTAL PROTEIN 5.9 g/dL (6.4-8.2)
[2020-07-25] MEDS: CYCLOBENZAPRINE 10 MG TABLET. PO SCH (09:00)
--- NOTE | 2020-07-25 09:17 | PDOC ---
CARDIO Progress Notes Date & Time Date of Service DATE: 07/25/20 TIME: 09:14 Time of Evaluation 09:14 Subjective Notes weak, achy Vitals Vitals Vital Signs Date Time Temp Pulse Resp B/P (MAP) Pulse Ox O2 Delivery O2 Flow Rate FiO2 07/25/20 08:00 Room Air 07/25/20 07:00 67 16 131/70 (90) 97 07/25/20 05:16 98.5 07/22/20 20:00 2.0 Weight Weight [ ] Input and Output I.O. Intake and Output 07/25/20 07:00 Intake Total 3490 ml Balance 3490 ml Intake Oral 390 ml IV Total 3100 ml # Voids 4 Laboratory Labs Laboratory Tests Test 07/24/20 08:50 07/25/20 05:55 White Blood Count 16.3 x10^3/uL (4.0-11.0) 14.9 x10^3/uL (4.0-11.0) Red Blood Count 4.20 x10^6/uL (3.50-5.40) 4.33 x10^6/uL (3.50-5.40) Hemoglobin 12.0 g/dL (12.0-15.5) 12.3 g/dL (12.0-15.5) Hematocrit 36.7 % (36.0-47.0) 37.7 % (36.0-47.0) Mean Corpuscular Volume 87 fL (79-100) 87 fL (79-100) Mean Corpuscular Hemoglobin 29 pg (25-35) 29 pg (25-35) Mean Corpuscular Hemoglobin Concent 33 g/dL (31-37) 33 g/dL (31-37) Red Cell Distribution Width 13.7 % (11.5-14.5) 13.9 % (11.5-14.5) Platelet Count 233 x10^3/uL (140-400) 235 x10^3/uL (140-400) Neutrophils (%) (Auto) 78 % (31-73) 76 % (31-73) Lymphocytes (%) (Auto) 12 % (24-48) 11 % (24-48) Monocytes (%) (Auto) 8 % (0-9) 9 % (0-9) Eosinophils (%) (Auto) 2 % (0-3) 2 % (0-3) Basophils (%) (Auto) 1 % (0-3) 1 % (0-3) Neutrophils # (Auto) 12.7 x10^3uL (1.8-7.7) 11.3 x10^3uL (1.8-7.7) Lymphocytes # (Auto) 1.9 x10^3/uL (1.0-4.8) 1.7 x10^3/uL (1.0-4.8) Monocytes # (Auto) 1.2 x10^3/uL (0.0-1.1) 1.4 x10^3/uL (0.0-1.1) Eosinophils # (Auto) 0.4 x10^3/uL (0.0-0.7) 0.3 x10^3/uL (0.0-0.7) Basophils # (Auto) 0.1 x10^3/uL (0.0-0.2) 0.2 x10^3/uL (0.0-0.2) Sodium Level 136 mmol/L (136-145) 135 mmol/L (136-145) Potassium Level 3.4 mmol/L (3.5-5.1) 3.8 mmol/L (3.5-5.1) Chloride Level 102 mmol/L (98-107) 102 mmol/L (98-107) Carbon Dioxide Level 26 mmol/L (21-32) 28 mmol/L (21-32) Anion Gap 8 (6-14) 5 (6-14) Blood Urea Nitrogen 9 mg/dL (7-20) 4 mg/dL (7-20) Creatinine 0.7 mg/dL (0.6-1.0) 0.6 mg/dL (0.6-1.0) Estimated GFR (Cockcroft-Gault) 84.2 100.6 Glucose Level 84 mg/dL (70-99) 142 mg/dL (70-99) Calcium Level 8.2 mg/dL (8.5-10.1) 8.3 mg/dL (8.5-10.1) Magnesium Level 1.9 mg/dL (1.8-2.4) Lipase 167 U/L (73-393) 289 U/L (73-393) BUN/Creatinine Ratio 7 (6-20) Total Bilirubin 0.4 mg/dL (0.2-1.0) Aspartate Amino Transf (AST/SGOT) 27 U/L (15-37) Alanine Aminotransferase (ALT/SGPT) 32 U/L (14-59) Alkaline Phosphatase 106 U/L (46-116) Total Protein 5.9 g/dL (6.4-8.2) Albumin 1.8 g/dL (3.4-5.0) Albumin/Globulin Ratio 0.4 (1.0-1.7) Microbiology Micro Microbiology 07/20/20 Urine Culture - Final, Complete Physical Exams HEENT: Neck Supple W Full Motion Chest: Symmetric Lungs: Clear to Auscultation Heart: RRR (SR), irregularly irregular Abdomen: Other (soft, non-distended. mild tenderness ) Extremities: No Edema Neurology: alert, oriented, follow commands Assessment Assessment 1. Abdominal pain; CT abd/pelvis with evidence of pancreatitis. 2. Leukocytosis, lactic acidosis 3. Hypokalemia; replaced 3. PAFIB; back in SR with Amiodarone and maintaining Recommendations Advancing diet Will convert Amiodarone and metoprolol to oral Add ASA Anticoagulated with Lovenox while inpatient Outpatient event monitor arranged to guide therapy and follow up with Dr. Richardson arranged Supportive care MAGUI RUDOLPH APRN Jul 25, 2020 09:17
[2020-07-25] MEDS ORDERED: AMIODARONE HCL 200 MG TABLET. PO SCH (09:45)
[2020-07-25] MEDS: POTASSIUM CL 40MEQ D5-0.45NACL 1,000 ML IV SCH (10:01)
[2020-07-25] MEDS: ENOXAPARIN ** NOTE DOSE ** SYRINGE SQ SCH (10:01)
[2020-07-25] MEDS: PANTOPRAZOLE IV 40 MG VIAL. IVP SCH (10:01)
[2020-07-25] MEDS ORDERED: METO25TA4 PO (15:51)
[2020-07-25] MEDS ORDERED: AMIO200T6 PO (15:51)
[2020-07-25] MEDS ORDERED: OXYC5TAB4 PO (15:52)
[2020-07-25] MEDS ORDERED: METOPROLOL TART IMMED RELEASE 25 MG TABLET. PO SCH (21:00)
--- NOTE | 2020-07-25 22:39 | DS ---
DATE OF DISCHARGE: 07/25/2020 HOSPITAL COURSE: The patient is a 64-year-old female patient who was admitted with abdominal pain, was found to have pancreatitis, seems to be chronic as her serum lipase has never been above the upper limit of normal. While here also she went into atrial fibrillation with rapid ventricular response for which she was seen by the Cardiology team and was started on amiodarone drip and switched to oral amiodarone. She was on Lovenox by the supervisor telephone clerks team, did not recommend any anticoagulation. She has had an echocardiogram, which showed that her left ventricular systolic function is normal, ejection fraction within normal range. Ejection fraction was 50-55%. There is normal left ventricular segmental wall motion. She was initially kept n.p.o. and started on a clear liquid diet and advanced as tolerated. She apparently has tolerated her breakfast this morning and expressed her desire to go home. She has no more pain and therefore, she will be discharged home to follow with the Cardiology team as well as her Primary Care Physician. Looking at the list of her medication only simvastatin can be the cause of her pancreatitis. She does not drink alcohol. She has no gallstones or cholelithiasis. Her serum triglycerides were only 75 and even corrected calcium even for a low albumin was only 9, ruling out all these are as the cause of her pancreatitis. I recommended that she should discontinue her simvastatin. PHYSICAL EXAMINATION: GENERAL: When I examined her this afternoon, she looked well and was clearly in no apparent respiratory distress. No pallor, jaundice, cyanosis or thyromegaly. No jugular venous distention. No lower limb edema. VITAL SIGNS: Her heart rate was 90, blood pressure was 115/82, temperature was 97.3, respiratory rate was 16, and oxygen saturation was 97%. The rest of clinical exam is stable. LABORATORY DATA: This morning showed a white cell count of 14,900; hemoglobin 12; hematocrit 37; MCV 87 and platelet count of 235,000 with normal manual differential. Her chemistry this morning showed a serum sodium 135, potassium 3.8, chloride 102, bicarbonate 28, anion gap of 5, BUN 4, creatinine 0.6, estimated GFR was 100 mL per minute. Her glucose 142, calcium was 8.3. Total bilirubin, AST, ALT, alkaline phosphatase were normal. Total protein 5.9, albumin was 1.8. Her most recent serum lipase was only 289. DISCHARGE MEDICATIONS: She was discharged home to continue on amiodarone 200 mg once a day, metoprolol tartrate 25 mg twice a day, oxycodone immediate release 5 mg every 8 hours, should continue also on aspirin 81 mg once a day and Lunesta 3 mg at bedtime as needed for insomnia. FINAL DISCHARGE DIAGNOSES: 1. Acute pancreatitis, most likely due to simvastatin. 2. Atrial fibrillation with rapid ventricular response, on amiodarone and aspirin. 3. Insomnia for which she is on Lunesta. RUBI VALLECILLO MD DR: ERNA/analy JOB#: [id number] / [id number]
[2020-07-26] MEDS ORDERED: ASPIRIN ENTERIC COATED 81 MG TABLET.DR. PO SCH (08:00)
== END 2020-07-25 16:15 | disposition home or self-care (01) | DRG 439 ==
LOC: ER 04:42 → 1 SOUTH 07:01 → ICU 07-23 09:03
PROVIDERS: ADMIT Hospitalist; ATTEND Hospitalist
DX: K85.00 Idiopathic acute pancreatitis without necrosis or infection (principal); E87.2 Acidosis; E87.1 Hypo-osmolality and hyponatremia; I48.0 Paroxysmal atrial fibrillation; E78.5 Hyperlipidemia, unspecified; M19.90 Unspecified osteoarthritis, unspecified site; E87.6 Hypokalemia; T46.6X5A Adverse effect of antihyperlipidemic and antiarteriosclerotic drugs, initial encounter; G47.00 Insomnia, unspecified; G44.209 Tension-type headache, unspecified, not intractable; M47.816 Spondylosis without myelopathy or radiculopathy, lumbar region; Z80.1 Family history of malignant neoplasm of trachea, bronchus and lung; Y92.89 Other specified places as the place of occurrence of the external cause
CPT/HCPCS: 36415; 74177; 80048; 80053; 80061; 81001; 83605; 83690; 83735; 84443; 85007; 85025; 87086; 93005; 93306; 96361; 96365; 96375; 96376; C9113; J0282; J1160; J1170; J1650; J2405; J2543; J3010; J3480; J3490; J7040; J7042; J7120; Q9967; 99285-25; J7030

== ENCOUNTER → 2020-08-27 | Outpatient (CLI) | payer MEDICARE, BC ==
[2020-07-25 13:00] VITALS: BP 115/82
[~2020-08-27] MED LIST: AMIO200T6 PO; ASPI-630 PO; ESZO3TAB28 PO; METO25TA4 PO; OXYC5TAB4 PO; SIMV20TA18 PO; TRAM50TA PO; ibuprofen; simvastatin; tramadol
--- NOTE | 2020-08-27 11:08 | RAD ---
EXAM: Bilateral digital screening mammogram with tomosynthesis. HISTORY: 64-year-old female presents for screening mammography. TECHNIQUE: Full-field digital craniocaudal and mediolateral oblique 2D and 3D tomosynthesis images of both breasts are obtained for evaluation. Computer aided detection was applied. COMPARISON: 08/04/2019 and 08/01/2018 BREAST PARENCHYMAL DENSITY: Level B - Scattered fibroglandular densities. FINDINGS: There is no new suspicious mass, microcalcification or region of architectural distortion. There are stable areas of nodularity and asymmetry within both breasts, including several benign-appe aring circumscribed nodular densities bilaterally. There has been minimal interval increase in a rea gn-appearing circumscribed nodular density within the 9:00 position of the right breast at mid to pos terior depth, the configuration of which and slow interval change of which favors a benign cystic ricki ology. There are few stable benign calcifications, including a cluster of calcifications within the 9 :00 position of the right breast. The long-term stability favors benignity. IMPRESSION: BI-RADS Category 2: Benign finding(s). RECOMMENDATION: Annual mammography is recommended. If your mammogram demonstrates that you have dense breast tissue, which could hide abnormalities, and if you have other risk factors for breast cancer that have been identified, you might benefit from s upplemental screening tests that may be suggested by your ordering physician. Dense breast tissue, i n and of itself, is a relatively common condition. This information is not provided to cause undue c oncern, but rather to raise your awareness and to promote discussion with your physician regarding th e presence of other risk factors, in addition to dense breast tissue. A report of your mammography re sults will be sent to you and your physician. You should contact your physician if you have any ques tions or concerns regarding this report. Mammography is a sensitive method for finding small breast cancers, but it does not detect them all a nd is not a substitute for careful clinical examination. A negative mammogram does not negate a clin ically suspicious finding and should not result in delay in biopsying a clinically suspicious abnorma lity. PQRS compliance statement - Patient information was entered into a reminder system with a target due date for the next mammogram. "Our facility is accredited by the [employer] Mammography Program." Electronically signed by: Suzi Burk MD (08/27/2020 11:06 AM) [id number]
== END ==
LOC: MAMMO 08:45
PROVIDERS: ATTEND Specialist
DX: Z12.31 Encounter for screening mammogram for malignant neoplasm of breast (principal); N64.89 Other specified disorders of breast
CPT/HCPCS: 77063; 77067

== ENCOUNTER → 2021-01-08 | Outpatient (CLI) | payer MEDICARE, BC ==
[2020-07-25 13:00] VITALS: BP 115/82
--- NOTE | 2021-01-08 16:20 | RAD ---
MR#: [id number] Date of Study: 01/08/2021 Ordering Physician: SIDDHARTH YAN, Referring Physician: MCKAYLA FARRIS Tech: RT Marylou (R) (N) APPROVED REPORT Test Type: Exercise Stress Nurse/Tech: Yue/Yesica Test Indications: P.A.P. Cardiac History: Hypertension Resting Heart Rate: 67 bpm Resting Blood Pressure: 160/68mmHg Pretest Chest Pain: No chest pain POST EXERCISE Reason for Termination: Reached target heart rate Target HR: 131 Max HR: 131 bpm 100% of Maximum Predicted HR: 131 bpm Exercise duration: 8 min:sec, 3 Stage Blood Pressure response to exercise: Normal blood pressure response during stress. Chest Pain: No. Arrhythmia: No. ST Change: No. INTERPRETATION Stress EKG Conclusion: Baseline EKG showed sinus rhythm. No ischemic changes at peak stress. No arr hythmias. Imaging Protocol IMAGE PROTOCOL: Rest Tc-99m/stress Tc-99m 1 day Rest: Stress: Viability: Radiopharm.Tc99m WcywsfkblLg28b Sestamibi Jmid49jWn 31mCi Duration 15min. 15min. Img Date 01/08/2021 01/08/2021 Inj-Img Wyti75gph. 60min. Rest Admin Site:IV - Right HandAdministrator: RT Marylou (R)(N) Stress Admin Site: IV - Right HandAdministrator: RT Marylou (R)(N) STRESS DATA End Diast. Vol.61.0mlAv. Heart Rate70.0bpm End Syst. Vol.6.0mlCO Index BSA0.0L/min Myocardial Uyyj608.0gEject. Jjsjpceg57.0% Stress Rates Pk. Fill Rate3.10EDV/secLVtime Pk. Fill 139.94msec Pk. Empty Rate3.65ESV/secLVtime Pk. Mzvys832.09msec 08/25 Pk. Fill1.89EDV/sec Stress Scores Regional WT0.00Summed WT0.00 Regional WM0.00Summed WM1.00 Study quality was good. Left Ventricular size was Normal at Rest and Stress. Lung uptake was . Left Ventricular ejection fraction is 87%. The rest and stress images show normal perfusion, normal contraction and thickening. LV Perf. Quant 17 Seg. SSS0.00 17 Seg. SRS0.00 17 Seg. SDS0.00 Stress Defect Extent (% LAD)0.00Rest Defect Extent (% LAD)0.00Rev. Defect Extent (% LAD)0.00 Stress Defect Extent (% LCX) 0.00Rest Defect Extent (% LCX)0.00Rev. Defect Extent (% LCX)0.00 Stress Defect Extent (% RCA)0.00Rest Defect Extent (% RCA)0.00Rev. Defect Extent (% RCA)0.00 Stress Defect Extent (% DILAN)0.00Rest Defect Extent (% DILAN)0.00Rev. Defect Extent (% DILAN)0.00 Conclusion 1. Treadmill exercise cardioisotope stress test did not show any evidence of ischemia or infarct. 2. Normal left ventricular systolic function with ejection fraction calculated at 87%. 3. Low risk for cardiac events. Signed by : Ra Peterson, Electronically Approved : 01/08/2021 16:20:13
== END ==
LOC: NM 08:20
PROVIDERS: ATTEND Internal Medicine Cardiovascular Disease
DX: I48.0 Paroxysmal atrial fibrillation (principal); I10 Essential (primary) hypertension
CPT/HCPCS: 78452; 93017; A9500; 96376

== ENCOUNTER → 2021-09-09 | Outpatient (CLI) | payer MEDICARE, BC ==
[2020-07-25 13:00] VITALS: BP 115/82
[~2021-09-09] MED LIST changes: +AMIO200T54 PO; -AMIO200T6 PO
[2021-09-09 14:48] LABS: ALBUMIN 3.8 g/dL (3.4-5.0); ALBUMIN/GLOBULIN RATIO 1.2 (1.0-1.7); CALCIUM 8.6 mg/dL (8.5-10.1); CREATININE 0.8 mg/dL (0.6-1.0); GFR 71.8; POTASSIUM 4.5 mmol/L (3.5-5.1); TOTAL BILIRUBIN 0.3 mg/dL (0.2-1.0); TOTAL PROTEIN 7.1 g/dL (6.4-8.2)
--- NOTE | 2021-09-09 15:47 | RAD ---
Bilateral digital screening 2-D and 3-D (digital breast tomosynthesis) mammogram: Reason for examination: Routine screening. Comparison: Mammograms from 08/27/2020 and 08/04/2019. Interpretation was made with the benefit of CAD. FINDINGS: Breast density: Category B. There are scattered areas of fibroglandular density. No suspicious breast mass, malignant appearing calcifications, or architectural distortion is seen. T here are multiple small oval circumscribed masses in the breasts which do not appear significantly ch anged. IMPRESSION: No evidence of malignancy. Assessment: BI-RADS 2. Benign findings. Recommendation: Routine screening mammograms. The patient will receive a letter with the results in the mail. Patient information will be entered i nto the mammography reminder system with a target recall date for the next mammogram. A reminder john er will be generated. Electronically signed by: Jaqueline Saravia MD (09/09/2021 3:45 PM) [id number]
[2021-09-10 20:46] LABS: CHOLESTEROL/HDL RATIO 2.3
== END ==
LOC: MAMMO 12:57
PROVIDERS: ATTEND Specialist
DX: Z12.31 Encounter for screening mammogram for malignant neoplasm of breast (principal); N63.20 Unspecified lump in the left breast, unspecified quadrant; N63.10 Unspecified lump in the right breast, unspecified quadrant; E78.5 Hyperlipidemia, unspecified
CPT/HCPCS: 36415; 77063; 77067; 80053; 80061; 83690